=== PATIENT | male | born 1990 | race Caucasian/White ===

== ENCOUNTER 2017-10-31 16:23 | Emergency (ER) | payer OTHER ==
[~2017-10-31] VITALS: Ht 180.3 cm; Wt 71.2 kg
[2017-10-31 16:50] VITALS: BP 138/79; Ht 180.3 cm; Wt 71.2 kg
== END 2017-10-31 18:17 | disposition home or self-care (01) ==
LOC: ED 16:23
DX: S70.11XA Contusion of right thigh, initial encounter (principal); W20.8XXA Other cause of strike by thrown, projected or falling object, initial encounter; Y93.89 Activity, other specified; Y92.89 Other specified places as the place of occurrence of the external cause; Y99.8 Other external cause status